=== PATIENT | male | born 1960 | race Hispanic/Latino ===

== ENCOUNTER 2017-01-23 08:17 | Outpatient (CLI) | payer OTHER, MEDICARE ==
[2017-01-23] MEDS ORDERED: DOBUTamine 100 MG in D5W 92 ML IV SCH (11:15)
--- NOTE | 2017-01-24 02:17 | Treadmill Report ---
CARDIAC NUCLEAR PERFUSION STUDY REASON FOR STUDY: Shortness of breath. IMAGING PROTOCOL: The patient received 10 mCi of Technetium 99m Tetrofosmin for resting image and 28 mCi of Technetium 99m Tetrofosmin for stress imaging. The imaging for the whole procedure was completed 30-90 minutes following the initial injection of Technetium 99m tetrofosmin. The SPECT imaging in the 180 degree arc was performed in the right anterior oblique projection. Computerized reconstruction of the images was performed for analysis. IMAGING RESULTS: Normal cavity size from stress to rest. Normal distribution of radionuclide in the anterior, inferior, septal, and apical regions. Gated SPECT, EF of 66% with no wall motion abnormalities. SUMMARY: Negative normal myocardial perfusion scan. No significant stress ischemia. No wall motion abnormality. Gated SPECT, EF 66%. JOB# [id number] ALVIN/SUSHANT
== END 2017-01-23 08:18 | disposition home or self-care (01) ==
LOC: CARD 08:17
PROVIDERS: ATTEND Internal Medicine
DX: R06.02 Shortness of breath (principal); R06.09 Other forms of dyspnea; R94.31 Abnormal electrocardiogram [ECG] [EKG]
CPT/HCPCS: 78452; 93017; A9502; J1250

== ENCOUNTER 2018-04-17 17:43 | Emergency (ER) | payer MEDICARE, OTHER ==
[2018-04-17 18:54] LABS: BUN/Creatinine Ratio 23; Blood Urea Nitrogen 16 mg/dL (9-20); Calcium 9.2 mg/dL (8.4-10.2); Hemolysis Index 15
--- NOTE | 2018-04-17 21:14 | Emergency Department Report ---
ED General Adult HPI - General Chief complaint: Medical Clearance Stated complaint: HIGH POTASSIUM Time Seen by Provider: 04/17/18 21:05 Source: patient Mode of arrival: Ambulatory Limitations: No Limitations - History of Present Illness Initial comments: Patient is 57 years old male with history of diabetes and COPD. Patient presented to the emergency room stating that he was contacted by his primary care physician to come to the ER because he has a potassium of 9.4. Patient stated that they billie blood from him 4 days ago as a routine checkup every 3 months. Patient denying any symptoms. Severity scale (0 -10): 0 - Related Data Allergies Allergy/AdvReac Type Severity Reaction Status Date / Time morphine AdvReac Dizziness Unverified 01/23/17 08:18 ED Review of Systems ROS: Stated complaint: HIGH POTASSIUM Other details as noted in HPI Comment: All other systems reviewed and negative Constitutional: denies: chills, fever Respiratory: denies: cough, orthopnea, shortness of breath, SOB with exertion, SOB at rest, wheezing Cardiovascular: denies: chest pain, palpitations, dyspnea on exertion Gastrointestinal: denies: abdominal pain, nausea, vomiting, diarrhea, constipation, hematemesis, melena, hematochezia Musculoskeletal: denies: back pain, joint swelling Neurological: denies: headache, weakness, numbness, paresthesias, confusion, abnormal gait ED Past Medical Hx - Past Medical History Hx Diabetes: Yes Hx COPD: Yes Additional medical history: SATHYA - Surgical History Additional Surgical History: trach, hip, pelvis - Social History Smoking Status: Current Some Day Smoker Substance Use Type: None ED Physical Exam - General Limitations: No Limitations General appearance: alert, in no apparent distress - Head Head exam: Present: atraumatic, normocephalic, normal inspection - Eye Eye exam: Present: normal appearance, PERRL - ENT ENT exam: Present: normal exam, normal orophraynx, mucous membranes moist - Neck Neck exam: Present: normal inspection, full ROM. Absent: tenderness, meningismus, lymphadenopathy, thyromegaly - Respiratory Respiratory exam: Present: normal lung sounds bilaterally - Cardiovascular Cardiovascular Exam: Present: regular rate, normal rhythm, normal heart sounds - GI/Abdominal GI/Abdominal exam: Present: soft, normal bowel sounds. Absent: distended, tenderness, guarding, rebound, rigid - Extremities Exam Extremities exam: Present: normal inspection, full ROM, normal capillary refill. Absent: pedal edema, calf tenderness - Back Exam Back exam: Present: normal inspection, full ROM. Absent: tenderness, CVA tenderness (R), CVA tenderness (L), muscle spasm, paraspinal tenderness, vertebral tenderness - Neurological Exam Neurological exam: Present: alert, oriented X3, CN II-XII intact, normal gait, reflexes normal - Psychiatric Psychiatric exam: Present: normal mood - Skin Skin exam: Present: warm, intact, normal color ED Course Vital Signs 04/17/18 18:05 Temperature 98.1 F Pulse Rate 100 H Respiratory 18 Rate Blood Pressure 108/67 O2 Sat by Pulse 92 Oximetry ED Medical Decision Making - Lab Data Result diagrams: 04/17/18 18:20 - Medical Decision Making Patient is 57 years old male with history of diabetes and COPD. Patient presented to the emergency room stating that he was contacted by his primary care physician to come to the ER because he has a potassium of 9.4. Patient stated that they billie blood from him 4 days ago as a routine checkup every 3 months. Patient denying any symptoms. Patient and repeated potassium came back at 4.3 with a creatinine of 0.7. I believe the result that is most likely due to hemolysis. I advised the patient to follow up with his primary care physician in the next 2-3 days. Critical care attestation.: If time is entered above; I have spent that time in minutes in the direct care of this critically ill patient, excluding procedure time. ED Disposition Clinical Impression: Abnormal laboratory test result, Hyperkalemia Disposition: - TO HOME OR SELFCARE Is pt being admited?: No Condition: Stable Instructions: Normal Exam (ED), Hyperkalemia (ED) Referrals: ISHA YUNG MD [Primary Care Provider] - 3-5 Days
[2018-04-17 21:16] VITALS: BP 125/82
== END 2018-04-17 21:24 | disposition home or self-care (01) ==
LOC: ED 17:43
DX: R79.9 Abnormal finding of blood chemistry, unspecified (principal); E87.5 Hyperkalemia; E11.9 Type 2 diabetes mellitus without complications; J44.9 Chronic obstructive pulmonary disease, unspecified; G47.33 Obstructive sleep apnea (adult) (pediatric); Z88.6 Allergy status to analgesic agent
CPT/HCPCS: 36415; 80048